=== PATIENT | male | born 1940 | race Caucasian/White ===

== ENCOUNTER 2023-06-29 13:27 | Emergency (ER) | payer MEDICARE, SELFPAY ==
[2023-06-29 13:28] VITALS: BP 121/54; PULSE 69; RESP 19; TEMP 36.2; O2SAT 98; BMI 23.5
--- NOTE | 2023-06-29 14:10 | EDS_ITS ---
HPI History of Present Illness Chief Complaint: Hypotension [facility] Medical History (Updated 06/29/23 @ 15:[address] Porfirio Chen, DO) Anemia DM II (diabetes mellitus, type II), controlled HTN (hypertension) Hyperlipidemia Hypokalemia Hypomagnesemia Hypothyroidism Pancreatic adenoma Paroxysmal atrial fibrillation SVT (supraventricular tachycardia) Tachycardia-bradycardia syndrome Home Medications allopurinol 300 mg tablet 300 mg PO DAILY 06/29/23 [History Last Taken Unknown] amlodipine 5 mg tablet 5 mg PO DAILY 06/29/23 [History Last Taken Unknown] apixaban 5 mg tablet (Eliquis) 5 mg PO Q12H 06/29/23 [History Last Taken Unknown] ferrous sulfate 325 mg (65 mg iron) tablet (Feosol) 325 mg PO DAILY 06/29/23 [History Last Taken Unknown] levothyroxine 88 mcg tablet 88 mcg PO DAILY 06/29/23 [History Last Taken Unknown] lidocaine-prilocaine 2.5 %-2.5 % topical cream 1 applic topical PRN PRN before accessing port 06/29/23 [History Last Taken Unknown] metformin 1,000 mg tablet 1,000 mg PO BID 06/29/23 [History Last Taken Unknown] metoprolol tartrate 25 mg tablet 25 mg PO DAILY 06/29/23 [History Last Taken Unknown] potassium chloride 20 mEq tablet,extended release(part/cryst) 20 meq PO BID 06/29/23 [History Last Taken Unknown] valsartan 320 mg-hydrochlorothiazide 25 mg tablet 1 tab PO DAILY 06/29/23 [History Last Taken Unknown] Allergy/AdvReac Type Severity Reaction Status Date / Time No Known Allergies Allergy Verified 06/29/23 13:38 Surgical History (Updated 06/29/23 @ 13:37 by Wendy Daugherty) H/O partial thyroidectomy Social History Smoking Status: Never smoker EXAM Physical Exam Const Vital Signs: 06/29/23 13:28 06/29/23 13:34 06/29/23 14:46 Temperature 97.2 F L Temperature Source Temporal Pulse Rate 69 Respiratory Rate 19 H Respiratory Effort Normal Non-Labored Respiratory Pattern Normal Blood Pressure 121/54 H Blood Pressure Mean 76 Pulse Ox 98 Oxygen Delivery Method Room Air Room Air 06/29/23 15:15 Temperature Temperature Source Pulse Rate 65 Respiratory Rate 20 H Respiratory Effort Respiratory Pattern Blood Pressure 120/53 L Blood Pressure Mean 75 Pulse Ox 100 Oxygen Delivery Method Room Air [facility] Narrative Medical decision making narrative: HISTORY OF PRESENT ILLNESS: 82-year-old male presents with concern for hypotension. States that his primary care doctor's office today noted hypotension with a systolic blood pressure of 63/45. Patient states he has no other symptoms including chest pain, palpitations, leg pain, back pain, focal weakness. States he did fall several days ago. His mechanical fall and he did not hit his head. Denies any other injury. REVIEW OF SYSTEMS: Pertinent positives: Hypotension, fall Pertinent negatives: Chest pain, shortness of breath PHYSICAL EXAM: Nursing triage notes reviewed, Vital signs reviewed Primary Survey Airway: Intact Breathing: Bilateral breath sounds Circulation: Palpable bilateral femorals, Palpable bilateral radial, Palpable bilateral DP and Palpable bilateral PT Disability / Spine precautions GCS Score: Eye Openin Verbal Response: 5 Motor Response: 6 Secondary Survey Constitutional: Please see MDM Head: Bruising and ecchymosis noted to the nasal bridge, NO jaw malocclusion, No Cephalohematoma, and No Lacerations noted Eye: Pupils equal round and reactive to light, Extraocular muscles intact and No periorbital ecchymosis or stepoff, no evidence of entrapment ENT: Oropharynx clear, no lacerations, no hemotympanum, no raccoon eyes or wallace sign Cervical spine / Neck: No cervical spine bony tenderness, crepitance, or stepoff deformity Trachea midline Lungs: Clear to auscultation, No asymmetric rise and No crepitus, no flail chest Cardiac: Regular rate and rhythm and No murmurs Abdomen: Soft, Nontender and No rebound Pelvis: Pelvis stable to compression : No evidence of genital injury Back: No midline bony tenderness to thoracic/lumbar/sacral spines Neuro: Alert and oriented x3, neuro exam at baseline, cranial nerves II through XII are intact. No pain with extraocular muscle movement. There is negative test of skew. 5 of 5 strength in upper and lower extremities in flexion extension. Intact sensation to light touch in upper and lower extremity dermatomes. No truncal or extremity ataxia. No dysdiadochokinesia. Normal gait. 2+ reflexes in upper and lower extremities. No meningeal signs. Negative Babinski. NIH of 0. Extremities: NO gross Deformities Psych: Normal affect Nursing triage notes reviewed, Vital signs reviewed MEDICAL DECISION MAKING: Chief Complaint: Hypotension External records reviewed: No records in [employer] Factors affecting care: Type 2 diabetes, hyperlipidemia, pancreatic cancer, atrial fibrillation Social determinants of health: Elderly History obtained from others: The patient's daughter Consults: none MDM Narrative: Patient was initially hemodynamically stable, afebrile and nontoxic-appearing. I considered the following differential diagnosis: Arrhythmia, anemia, distributive shock, hemorrhagic shock, obstructive shock, neurogenic shock ALL IMAGES (IF OBTAINED) HAVE BEEN PERSONALLY REVIEWED AND INTERPRETED BY MYSELF. EKG with normal sinus rhythm, normal axis, normal intervals, no STEMI BNP elevated consistent with volume overload, increased ventricular stretch High-sensitivity troponin is negative, no evidence of myocardial ischemia CT scan of the head face and cervical spine showed no evidence of traumatic injury I have personally reviewed the patient's chest x-ray. Chest x-ray is unremarkable for pulmonary edema, pneumothorax, pneumonia or focal cardiopulmonary abnormality. CBC with no leukocytosis, mild anemia, no thrombocytopenia, no prior for comparison BMP with mild hyponatremia, no other significant Patience abnormalities, no anion gap or signs of metabolic acidosis, noted renal insufficiency, no prior for comparison I have personally reviewed the patient's chest x-ray. Chest x-ray is unremarkable for pulmonary edema, pneumothorax, pneumonia or focal cardiopulmonary abnormality. The synthesis of the patient's history, physical exam, labs images suggest no acute life-limiting etiology. The patient reported blood pressure that was low at an outpatient visit here his blood pressure remained stable. There is no signs of metabolic acidosis or anion gap to suggest endorgan hypoperfusion. There is no physical exam or imaging findings to suggest neurogenic shock. There is no fever, elevated white blood cell count or signs of infection to suggest distributive shock. Patient denied any bleeding suggesting neurologic shock. No chest pain no shortness of breath to suggest obstructive shock from pericardial effusion or PE. Given patient stable vital signs, reassuring exam and labs he is appropriate for discharge home. Incidental finding of enlarged thyroid/mediastinal extension was discussed the patient. This is a known issue and has outpatient follow-up. The patient and/or family, caregivers express understanding. The patient and/or family, caregivers agrees with the plan. Shared decision making: I will have a discussion with the patient and or visitors regarding risk/benefit s of further testing or admission. They will be made aware of of the risk/benefits inherent in this decision they will be given the opportunity to voice understanding. Total critical care time today provided was at least 0 minutes. This excludes separately billable procedures. Critical care time (if documented) is secondary to the patient having high probability of clinically significant/life threatening deterioration in the patient's condition which required my urgent intervention. Impression: 1. Hypotension (resolved) 2. Fall 3. Anemia 4. Hyponatremia Dispo: Discharge This note was generated with [employer] dictation software. It may contain incorrect words, spelling, and punctuation that were not noted in review of the chart prior to signing. Lab Data Labs: Laboratory Results - last 24 hr 06/29/23 13:14 WBC 9.3 RBC 3.15 L Hgb 9.2 L Hct 29.9 L MCV 94.9 H MCH 29.2 MCHC 30.8 L RDW Std Deviation 70.2 H RDW Coeff of [place] 20.4 H Plt Count 175 MPV 11.3 Immature Gran % (Auto) 1.300 H Neut % (Auto) 78.2 H Lymph % (Auto) 9.8 L [place] % (Auto) 9.0 Eos % (Auto) 0.3 Baso % (Auto) 1.4 H Absolute Neuts (auto) 7.3 Absolute Lymphs (auto) 0.91 Nucleated RBC % 0 Poikilocytosis 1+ Anisocytosis 1+ Sodium 133 L Potassium 4.6 Chloride 105 Carbon Dioxide 22.0 Anion Gap 6 BUN 23 H Creatinine 1.36 H Estim Creat Clear Calc 40.43 Est GFR (MDRD) Af Amer 64 Est GFR (MDRD) Non-Af 53 L BUN/Creatinine Ratio 16.9 Glucose 186 H Calcium 9.6 Troponin I High Sens 26 B-Natriuretic Peptide 598.3 H Radiography Diagnostic Testing: Clinical Impression(s) from Imaging Studies Brain CT 06/29/23 14:35 IMPRESSION: Chronic involutional changes of the brain. Electronically Signed: Hieu Corbett MD at 15:08 EST , Cervical Spine CT 06/29/23 14:35 IMPRESSION: Multilevel degenerative changes, as described above. Bilateral neural foraminal stenosis as described. 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 Electronically Signed: Hieu Corbett MD at 15:13 EST , Facial/Sinus 06/29/23 14:35 IMPRESSION: Nasal septal deviation to the left side of the midline. Mucosal thickening at the base of the left maxillary sinus. No fracture is seen. Electronically Signed: Hieu Corbett MD at 15:09 EST , Chest X-Ray 06/29/23 15:00 IMPRESSION: The lungs are clear. Findings suggestive of a superior mediastinal mass most likely represents enlargement of the thyroid. Electronically Signed: Hieu Corbett MD at 15:14 EST , Discharge Plan Triage Chief Complaint: Hypotension ED Provider: Porfirio Chen Dx/Rx/DC Orders Clinical Impression: Acute hypotension, Mass of mediastinum Instructions: ED Low Blood Pressure, All Causes Prescriptions: No Action potassium chloride 20 mEq tablet,ER particles/crystals 20 meq PO BID valsartan-hydrochlorothiazide 320-25 mg tablet 1 tab PO DAILY lidocaine-prilocaine 2.5-2.5 % cream 1 applic topical PRN PRN (Reason: before accessing port) ferrous sulfate [Feosol] 325 mg (65 mg iron) tablet 325 mg PO DAILY allopurinol 300 mg tablet 300 mg PO DAILY amlodipine 5 mg tablet 5 mg PO DAILY Eliquis 5 mg tablet 5 mg PO Q12H levothyroxine 88 mcg tablet 88 mcg PO DAILY metformin 1,000 mg tablet 1,000 mg PO BID metoprolol tartrate 25 mg tablet 25 mg PO DAILY Primary Care Provider: Minnie Fry NP Referrals: Ang,Minnie ONLINE AFFILIATE MARKETING MANAGER, ONLINE AFFILIATE MARKETING MANAGER-C [Primary Care Provider] - Activity Restrictions/Additional Instructions: Thank you for trusting us with your care today! Please take Tylenol (2 pills, 650 mg) every 6 hours as needed for pain and fever control. Please return to the emergency department if your symptoms change or worsen. Please follow with your primary care physician for further outpatient evaluation and management. Disposition Disposition: Home, Self Care Discharge Date/Time: 06/29/23 15:51
--- NOTE | 2023-06-29 14:35 | CT_ITS ---
STUDY: CT BRAIN WITHOUT CONTRAST REASON FOR EXAM: Male, 82 years old. Fall, head trauma RADIATION DOSAGE (If Supplied By Facility): CTDIvol = ( 44.99 ) mGy, DLP = ( 1803.70 ) mGycm TECHNIQUE: Transaxial CT imaging of the brain was performed without administration of intravenous contrast material. Individualized dose optimization techniques were used for this CT. COMPARISON: No relevant priors. FINDINGS: Normal soft tissue structures. Normal calvarium. There is mild cerebral atrophy with widening of the extra-axial spaces and ventricular dilatation. There are areas of decreased attenuation within the white matter tracts of the supratentorial brain, consistent with microvascular disease changes. Normal basal ganglia and thalami. Normal brainstem. There is mild cerebellar atrophy. There is no intracranial hemorrhage. There are no findings of an acute ischemic infarction. Atherosclerotic plaque formation of the vertebral arteries as well as the cavernous portions of the internal carotid arteries bilaterally. Small polyp or mucosal retention cyst at the base of the left maxillary sinus. CT/Brain/Head without Contrast IMPRESSION: Chronic involutional changes of the brain. Electronically Signed: Hieu Corbett MD at 15:08 EST ,
--- NOTE | 2023-06-29 14:35 | CT_ITS ---
STUDY: CT FACIAL BONES WITHOUT CONTRAST REASON FOR EXAM: Male, 82 years old. Facial trauma RADIATION DOSAGE (If Supplied By Facility): CTDIvol = ( 29.38 ) mGy, DLP = ( 1803.70 ) mGycm TECHNIQUE: The patient was scanned in a multi detector CT scanner. Sagittal and coronal images were reconstructed. Individualized dose optimization techniques were used for this CT. COMPARISON: None. FINDINGS: Normal soft tissue structures. Normal orbital martinez and orbital contents. Normal nasal bones and anterior nasal spine. Normal facial bones. There is no demonstrated fracture. Mucosal thickening at the base of the left maxillary sinus. Nasal septal deviation towards the left side of the midline. CT/Sinus/Facial Bone IMPRESSION: Nasal septal deviation to the left side of the midline. Mucosal thickening at the base of the left maxillary sinus. No fracture is seen. Electronically Signed: Hieu Corbett MD at 15:09 EST ,
--- NOTE | 2023-06-29 14:35 | CT_ITS ---
STUDY: CT CERVICAL SPINE WITHOUT CONTRAST REASON FOR EXAM: Male, 82 years old. Fall, neck pain RADIATION DOSAGE (If Supplied By Facility): CTDIvol = ( 20.26 ) mGy, DLP = ( 1803.70 ) mGycm TECHNIQUE: High resolution transaxial imaging was performed without contrast material. Sagittal and coronal images were reconstructed. Individualized dose optimization techniques were used for this CT. COMPARISON: None FINDINGS: Normal craniovertebral junction. There are degenerative changes of the anterior atlantoaxial articulation. Normal odontoid process. Normal cervical lordosis. Normal vertebral bodies and posterior osseous elements. C2-3: Facet joint osteoarthritis and hypertrophy worse on the right side. No significant stenosis is seen. C3-4: Facet joint osteoarthritis and hypertrophy worse on the right side. No significant neural foraminal stenosis is seen. C4-5: Facet joint osteoarthritis and hypertrophy. Uncovertebral arthrosis. Mild bilateral neural foraminal stenosis. C5-6: Moderate degree of disc space narrowing. Spondylosis. Uncovertebral arthrosis. Bilateral neural foraminal stenosis worse on the left side. Posterior spondylosis. C6-7: Marked degree of disc space narrowing. Uncovertebral arthrosis. A marked degree of bilateral neural foraminal stenosis worse on the right side. C7-T1: Normal endplates. Normal disc height and morphology. Normal central canal and intervertebral neuroforamina. Calcification of the carotid bifurcations bilaterally. Right-sided portacatheter is seen. 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 CT/Spine Cervical without Contras IMPRESSION: Multilevel degenerative changes, as described above. Bilateral neural foraminal stenosis as described. 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 Electronically Signed: Hieu Corbett MD at 15:13 EST ,
--- NOTE | 2023-06-29 14:44 | ED.RN ---
NO OLD EKG
[2023-06-29 14:52] LABS: Absolute Lymphocyte Count 0.91 X10^3/uL (0.83-4.51); Absolute Neutrophil Count 7.3 X10^3/uL (2.0-7.7); Basophil# 0.13 X10^3/uL; Basophil% 1.4 % (0-1); Eosinophil# 0.03 X10^3/uL; Eosinophils% 0.3 % (0-5); Hematocrit 29.9 % (40-54); Hemoglobin 9.2 g/dL (13.0-16.5); Lymphocyte # 0.91 X10^3/ul (0.83-4.51); Lymphocyte % 9.8 % (19-41); Mean Corp Hgb Conc 30.8 g/dL (32-36); Mean Corpuscular Hgb 29.2 pg (27.0-32.0); Mean Corpuscular Volume 94.9 fL (80-94); Mean Platelet Vol. 11.3 fl (6.2-12.0); Monocyte# 0.84 X10^3/uL; NRBC Flagged by Analyzer 0 % (0-5); Neutrophil % 78.2 % (47-70); POSITIVE MORPHOLOGY YES; Platelet Count 175 K/mm3 (150-450); RBC Distribution Width CV 20.4 % (11.6-14.6); RBC Distribution Width SD 70.2 fl (35.1-43.9); Red Blood Count 3.15 M/mm3 (4.6-6.2); White Blood Count 9.3 K/mm3 (4.4-11.0)
[2023-06-29 14:57] LABS: Differential Indicated SCAN CRITERIA MET
--- NOTE | 2023-06-29 15:00 | RAD_ITS ---
STUDY: X-RAY CHEST REASON FOR EXAM: Male, 82 years old. Weakness, hypotension TECHNIQUE: Single AP portable view of the chest. COMPARISON: None. FINDINGS: The right-sided bozena catheter is seen with the tip in the superior vena cava. EKG electrodes are seen. Soft tissue density seen in the upper mediastinum causing the compression of the trachea worse on the right side. Lungs are clear. There is no demonstrated pleural abnormality. Normal size heart. Normal mediastinum and manjeet. Normal visualized pulmonary arteries. Normal visualized aortic arch and descending thoracic aorta. Normal visualized thoracic spine. Prior rotator cuff surgery. There is no demonstrated abnormality of the visualized soft tissue structures of the upper abdomen. RAD/Chest 1 View (Portable) IMPRESSION: The lungs are clear. Findings suggestive of a superior mediastinal mass most likely represents enlargement of the thyroid. Electronically Signed: Hieu Corbett MD at 15:14 EST ,
[2023-06-29 15:12] LABS: Anion Gap 6 (5-15); BUN 23 mg/dL (7-18); BUN/Creat Ratio 16.9 RATIO (10-20); Calcium,Total 9.6 mg/dL (8.5-10.1); Chloride 105 mmol/L (98-107); Creatinine, Serum 1.36 mg/dL (0.70-1.30); EST Glomerular Filtration Rate 53 mL/min (>60); Est Glom Filt Rate - Afr Amer 64 mL/min (>60); Estimated Creatinine Clearance 40.43 ml/min; Glucose 186 mg/dL (74-106); Potassium 4.6 mmol/L (3.5-5.1); Sodium Level 133 mmol/L (136-145); Troponin-I HS 26 pg/mL (3.0-78.0)
[2023-06-29] MEDS: 0.9% Normal Saline (500mL Bag) 500 ML 999 ML IV (15:14)
[2023-06-29 15:15] VITALS: BP 120/53; PULSE 65; RESP 20; O2SAT 100
[2023-06-29 15:15] LABS: BNP,B-Type NATRIURETIC PEPTIDE 598.3 pg/mL (0-100)
[2023-06-29 15:24] LABS: Anisocytosis 1+; Poikilocytosis 1+
== END 2023-06-29 15:51 | disposition home or self-care (01) ==
PROVIDERS: Emergency Provider Emergency Medicine; PCP Nurse Practitioner Adult Health; Visit Provider Emergency Medicine
DX: I95.9 Hypotension, unspecified (principal); I48.0 Paroxysmal atrial fibrillation; E11.9 Type 2 diabetes mellitus without complications; D64.9 Anemia, unspecified; E87.1 Hypo-osmolality and hyponatremia
CPT/HCPCS: 70450; 70486; 71045; 72125; 80048; 83880; 84484; 85025; 93005; 99284; J7030

== ENCOUNTER 2023-07-17 12:31 | Emergency (ER) | payer MEDICARE, SELFPAY ==
[2023-07-17 12:31] VITALS: BP 89/71; PULSE 147; RESP 16; TEMP 36.4; O2SAT 100; BMI 23.3
--- NOTE | 2023-07-17 13:01 | EKG12_ITS ---
Test Reason : LOW BP Blood Pressure : / mmHG Vent. Rate : 141 BPM Atrial Rate : 000 BPM P-R Int : 000 ms QRS Dur : 112 ms QT Int : 318 ms P-R-T Axes : 000 077 -39 degrees QTc Int : 487 ms Critical Test Result: High HR Supraventricular tachycardia Low voltage QRS Incomplete right bundle branch block ST & T wave abnormality, consider anterior ischemia Abnormal ECG Confirmed by Andre Ochoa ([id number]), film editor VICTOR HUGO OLIVEIRA ([id number]) on 07/18/2023 10:55:19 AM Referred By: Confirmed By:Andre Ochoa
--- NOTE | 2023-07-17 13:04 | EX.ED.DYSGE1 ---
HPI History of Present Illness Chief Complaint: Hypotension Narrative Narrative: 83-year-old male past medical history of pancreatic cancer with supposed to get chemotherapy today. According to his daughter it would be his 21st round. Patient is asymptomatic but it was noted that his blood pressure was low, and he had a rapid heart rate. He denies any chest pain or shortness of breath. He was given a 500 Milliliter bolus of normal saline and they did not perform the chemotherapy. He was sent to the emergency department for further evaluation. Patient states that he may have mild shortness of breath/heavy breathing, but it usually resolves after he stands up. [facility] Medical History Anemia DM II (diabetes mellitus, type II), controlled HTN (hypertension) Hyperlipidemia Hypokalemia Hypomagnesemia Hypothyroidism Pancreatic adenoma Paroxysmal atrial fibrillation SVT (supraventricular tachycardia) Tachycardia-bradycardia syndrome Home Medications allopurinol 300 mg tablet 300 mg PO DAILY 06/29/23 [History Last Taken 07/17/23] amlodipine 5 mg tablet 5 mg PO DAILY 06/29/23 [History Last Taken 07/17/23] apixaban 5 mg tablet (Eliquis) 5 mg PO Q12H 06/29/23 [History Last Taken 07/17/23] ferrous sulfate 325 mg (65 mg iron) tablet (Feosol) 325 mg PO DAILY 06/29/23 [History Last Taken 07/17/23] levothyroxine 88 mcg tablet 88 mcg PO DAILY 06/29/23 [History Last Taken 07/17/23] lidocaine-prilocaine 2.5 %-2.5 % topical cream 1 applic topical DAILY PRN before accessing port 06/29/23 [History Last Taken 07/17/23] metformin 1,000 mg tablet 1,000 mg PO BID 06/29/23 [History Last Taken 07/17/23] metoprolol tartrate 25 mg tablet 12.5 mg PO BID 06/29/23 [History Last Taken 07/17/23] potassium chloride 20 mEq tablet,extended release(part/cryst) 20 meq PO BID 06/29/23 [History Last Taken 07/17/23] valsartan 320 mg-hydrochlorothiazide 25 mg tablet 1 tab PO DAILY 06/29/23 [History Last Taken 07/17/23] cholecalciferol (vitamin D3) 1 tab PO DAILY supplement 07/17/23 [History Last Taken 07/17/23] magnesium chloride 71.5 mg (magnesium chloride) tablet,delayed release (Slow-Mag) 71.5 mg PO TID 07/17/23 [History Last Taken 07/17/23] omega-3 fatty acids-fish oil 360 mg-1,200 mg capsule (Fish Oil) 3 cap PO BID 07/17/23 [History Last Taken 07/17/23] Allergy/AdvReac Type Severity Reaction Status Date / Time No Known Allergies Allergy Verified 07/17/23 12:31 Surgical History H/O partial thyroidectomy Social History Smoking Status: Never smoker ROS ROS ED ROS Narrative Constitutional: No fever, no chills. HEENT: No sore throat. No neck pain. No loss of vision. No rhinorrhea. Cardiovascular: No chest pain. No palpitations. No pedal edema. Respiratory: No cough, occasional heavy breathing/shortness of breath. Abdominal: No abdominal pain. No nausea. No vomiting. Genitourinary: No dysuria. No hematuria. Musculoskeletal: No myalgias. No arthralgias. Neurologic: No headaches. No dizziness. No lightheadedness. Skin: No rash. No change in color. Psychiatric: No depression. No anxiety. EXAM Physical Exam Narrative Exam Narrative: Afebrile. Vital signs noted. HEENT: Normocephalic. Atraumatic. PERRL, EOMI. Neck soft and supple. No point tenderness or step off. Cardiovascular: Irregularly irregular tachycardia, no murmurs, rubs, or gallops appreciated. Respiratory: No tachypnea. Lungs clear to auscultation bilaterally. Gastrointestinal: Abdomen soft, nontender, with normoactive bowel sounds. No rebound or guarding. Neurological: Awake. Alert. Nonfocal, nonlateralizing. Skin: No rash. Normal color. No pallor. Musculoskeletal: No pedal edema. Full range of motion extremities. Const Vital Signs: 07/17/23 12:31 07/17/23 13:34 07/17/23 13:30 Temperature 97.6 F L Temperature Source Temporal Pulse Rate 147 H 139 H Respiratory Rate 16 18 Respiratory Effort Normal Non-Labored Respiratory Pattern Normal Blood Pressure 89/71 L 105/75 Blood Pressure Mean 77 86 Pulse Ox 100 Oxygen Delivery Method Room Air MDM MDM MDM Narrative Medical decision making narrative: In discussion with the patient, he does have history of atrial fibrillation that is longstanding. The top of my differential for his hypotension is irregularly irregular tachycardia/A-fib with RVR. In the differential diagnosis as well is intravascular volume depletion versus dehydration, but he has not had any nausea or vomiting or diarrhea recently. Initial EKG was obtained and interpreted by myself independently as supraventricular tachycardia at [address] changes. No STEMI. With his history of atrial fibrillation, I do feel that this is most likely A-fib with RVR. I reviewed his laboratory work, he has a normal white count of 6.2, hemoglobin stable at 9.3 with platelet count 206. His electrolyte panel is grossly unremarkable except for CO2 low at 20 which may be from hyperventilation, BUN elevated at 21 with creatinine 1.07 consistent with mild dehydration, but no evidence of hypokalemia or hyponatremia. His lactic acid is elevated at 3.8, high-sensitivity troponin is 23. I am unsure as to how long he may have been in atrial fibrillation which may have caused his lactic acidosis and hypotension. Patient does take apixaban, and has not missed a dose within the last 3 weeks. Additionally, he is on metoprolol and amlodipine. Do feel that his metoprolol is a low-dose is most likely for rate control. I did order metoprolol 10 mg intravenously. I have discussed patient with Dr. Andre Ochoa, and his blood pressure has come up to 105/75 so I do not feel that emergent cardioversion is indicated. Additionally, he suggested rate control and follow-up with cardiology at [facility]. Chest x-ray in 1 view interpreted by myself independently shows no pneumonia or pneumothorax. I do not feel antibiotics are indicated. Patient was bolused normal saline IV fluids. Prior to administration of metoprolol, patient became bradycardic in the 20s as he was drifting off to sleep. His heart rate returned to the 60s. Repeat EKG was obtained and interpreted by myself as normal sinus rhythm at 63 bpm without ectopy or acute ST changes. No STEMI. Patient had spontaneously cardioverted. He is unable to produce a urine sample. His current systolic blood pressure is 122 on the monitor. I do not feel his lactic acidosis is secondary to sepsis. I discussed the patient with Dr. Linn, his oncologist. He will attempt to reschedule his chemotherapy. Through shared decision making with the patient and his daughter, it was not felt that observation or even admission would be beneficial to him. He understands the risks and benefits. I feel that he is probably having intermittent episodes of atrial fibrillation with rapid ventricular response, but that is why he is on Eliquis. He has spontaneously cardioverted in the emergency department. He will follow-up with his oncologist and cardiology as scheduled. Disposition is discharged home in stable condition. History & Record Review Discussion w/independent historian: Patient and Family (Daughter, Radha) Additional record(s) reviewed:: No prior records Lab Data Attestation: I reviewed the patient's lab results. Labs: Laboratory Results - last 24 hr 07/17/23 13:20 WBC 6.2 RBC 3.17 L Hgb 9.3 L Hct 29.4 L MCV 92.7 MCH 29.3 MCHC 31.6 L RDW Std Deviation 65.1 H RDW Coeff of [place] 19.0 H Plt Count 206 MPV 9.8 Immature Gran % (Auto) 0.300 Neut % (Auto) 61.4 Lymph % (Auto) 22.6 [place] % (Auto) 13.4 H Eos % (Auto) 1.3 Baso % (Auto) 1.0 Absolute Neuts (auto) 3.8 Absolute Lymphs (auto) 1.40 Nucleated RBC % 0 Anisocytosis 2+ Sodium 139 Potassium 4.7 Chloride 107 Carbon Dioxide 20.0 L Anion Gap 12 BUN 21 H Creatinine 1.07 Estim Creat Clear Calc 50.47 Est GFR (MDRD) Af Amer 85 Est GFR (MDRD) Non-Af 70 BUN/Creatinine Ratio 19.6 Glucose 174 H Lactic Acid 3.8 H* Calcium 8.9 Total Bilirubin 0.40 AST 45 H ALT 48 Alkaline Phosphatase 151 H Troponin I High Sens 23 Total Protein 6.1 L Albumin 2.3 L Globulin 3.8 Albumin/Globulin Ratio 0.6 L Radiography Diagnostic Testing: Clinical Impression(s) from Imaging Studies Chest X-Ray 07/17/23 13:25 IMPRESSION: Chronic interstitial changes, no superimposed acute pulmonary process Stable soft tissue mass in the upper left mediastinum deviating the trachea to the right, likely thyroid. Electronically Signed: George Khoury MD at 13:46 EST , Discharge Plan Triage Chief Complaint: Hypotension ED Provider: Kennedy Buck Dx/Rx/DC Orders Clinical Impression: History of pancreatic cancer, Hypotension, Atrial fibrillation with RVR, Lactic acidosis Prescriptions: No Action potassium chloride 20 mEq tablet,ER particles/crystals 20 meq PO BID valsartan-hydrochlorothiazide 320-25 mg tablet 1 tab PO DAILY lidocaine-prilocaine 2.5-2.5 % cream 1 applic topical DAILY PRN (Reason: before accessing port) ferrous sulfate [Feosol] 325 mg (65 mg iron) tablet 325 mg PO DAILY allopurinol 300 mg tablet 300 mg PO DAILY amlodipine 5 mg tablet 5 mg PO DAILY Eliquis 5 mg tablet 5 mg PO Q12H levothyroxine 88 mcg tablet 88 mcg PO DAILY metformin 1,000 mg tablet 1,000 mg PO BID metoprolol tartrate 25 mg tablet 12.5 mg PO BID omega-3 fatty acids-fish oil [Fish Oil] 360-1,200 mg capsule 3 cap PO BID Slow-Mag 71.5 mg tablet,delayed release (DR/EC) 71.5 mg PO TID cholecalciferol (vitamin D3) 1 tab PO DAILY Primary Care Provider: Minnie Fry NP Referrals: Rashi Linn MD [Med Staff - Active Staff] - As soon as possible Minnie Fry NP, SIGNAL OPERATOR LINGUIST-C [Primary Care Provider] - Disposition Disposition: Home, Self Care
[2023-07-17] MEDS: 0.9% Normal Saline (1000mL) 1,000 ML 1000 ML IV (13:19)
--- NOTE | 2023-07-17 13:25 | RAD_ITS ---
STUDY: X-RAY CHEST REASON FOR EXAM: Male, 83 years old. Chest pain/pressure TECHNIQUE: Single AP portable view of the chest. COMPARISON: 06/29/2023 FINDINGS: EKG leads overlie the chest. Stable appearance of a right subclavian port Chronic interstitial changes in both lung woods without a superimposed acute pulmonary process, or significant interval change. Normal size heart. Persistent upper mediastinal soft tissue mass, may be related to thyroid deviating the trachea again to the right. Normal visualized pulmonary arteries. Normal visualized aortic arch and descending thoracic aorta. Normal visualized thoracic spine. Normal visualized ribs, clavicles, and shoulders. There is no demonstrated abnormality of the visualized soft tissue structures of the upper abdomen. RAD/Chest 1 View (Portable) IMPRESSION: Chronic interstitial changes, no superimposed acute pulmonary process Stable soft tissue mass in the upper left mediastinum deviating the trachea to the right, likely thyroid. Electronically Signed: George Khoury MD at 13:46 EST ,
[2023-07-17 13:30] VITALS: BP 105/75; PULSE 139; RESP 18
[2023-07-17 13:34] LABS: Absolute Neutrophil Count 3.8 X10^3/uL (2.0-7.7); Basophil# 0.06 X10^3/uL; Eosinophil# 0.08 X10^3/uL; Eosinophils% 1.3 % (0-5); Hematocrit 29.4 % (40-54); Hemoglobin 9.3 g/dL (13.0-16.5); Lymphocyte % 22.6 % (19-41); Mean Corp Hgb Conc 31.6 g/dL (32-36); Mean Corpuscular Hgb 29.3 pg (27.0-32.0); Mean Corpuscular Volume 92.7 fL (80-94); Mean Platelet Vol. 9.8 fl (6.2-12.0); Monocyte# 0.83 X10^3/uL; Monocyte% 13.4 % (0-10); NRBC Flagged by Analyzer 0 % (0-5); Neutrophil % 61.4 % (47-70); POSITIVE MORPHOLOGY YES; Platelet Count 206 K/mm3 (150-450); RBC Distribution Width SD 65.1 fl (35.1-43.9); Red Blood Count 3.17 M/mm3 (4.6-6.2); White Blood Count 6.2 K/mm3 (4.4-11.0)
[2023-07-17 13:39] LABS: Differential Indicated SCAN CRITERIA MET
[2023-07-17 13:47] LABS: ALB/GLOB Ratio 0.6 RATIO (0.9-2.4); AST(SGOT) 45 U/L (15-37); Alanine Aminotransfer ALT/SGPT 48 U/L (16-61); Albumin, Serum 2.3 g/dL (3.2-5.0); Alkaline Phosphatase 151 U/L (45-117); Anion Gap 12 (5-15); BUN 21 mg/dL (7-18); BUN/Creat Ratio 19.6 RATIO (10-20); Calcium,Total 8.9 mg/dL (8.5-10.1); Chloride 107 mmol/L (98-107); Creatinine, Serum 1.07 mg/dL (0.70-1.30); EST Glomerular Filtration Rate 70 mL/min (>60); Est Glom Filt Rate - Afr Amer 85 mL/min (>60); Estimated Creatinine Clearance 50.47 ml/min; Globulin 3.8 g/dL (2.2-4.2); Glucose 174 mg/dL (74-106); Potassium 4.7 mmol/L (3.5-5.1); Protein, Total 6.1 g/dL (6.4-8.2); Sodium Level 139 mmol/L (136-145); Troponin-I HS 23 pg/mL (3.0-78.0)
[2023-07-17 13:58] LABS: Lactic Acid 3.8 mmol/L (0.4-1.9)
[2023-07-17 14:00] VITALS: BP 106/79; PULSE 135; RESP 17
[2023-07-17 14:00] LABS: Anisocytosis 2+
--- NOTE | 2023-07-17 14:19 | EKG12_ITS ---
Test Reason : REPEAT Blood Pressure : / mmHG Vent. Rate : 063 BPM Atrial Rate : 063 BPM P-R Int : 194 ms QRS Dur : 118 ms QT Int : 428 ms P-R-T Axes : 033 056 029 degrees QTc Int : 437 ms Normal sinus rhythm Low voltage QRS Incomplete right bundle branch block Borderline ECG Confirmed by Andre Ochoa ([id number]), industrial editor VICTOR HUGO OLIVEIRA ([id number]) on 07/18/2023 10:55:41 AM Referred By: Confirmed By:Andre Ochoa
[2023-07-17 15:00] VITALS: BP 127/65; PULSE 66; RESP 19
[2023-07-17 15:16] VITALS: BP 127/65; PULSE 66; RESP 19; TEMP 36.4; O2SAT 100
[2023-07-17 17:25] LABS: Reflex Lactate? Y
== END 2023-07-17 15:19 | disposition home or self-care (01) ==
PROVIDERS: Emergency Provider Emergency Medicine; PCP Nurse Practitioner Adult Health; Visit Provider Emergency Medicine
DX: I95.9 Hypotension, unspecified (principal); I48.0 Paroxysmal atrial fibrillation; E11.9 Type 2 diabetes mellitus without complications; E87.20 Acidosis, unspecified; E03.9 Hypothyroidism, unspecified; Z79.899 Other long term (current) drug therapy; Z79.01 Long term (current) use of anticoagulants; Z79.84 Long term (current) use of oral hypoglycemic drugs
CPT/HCPCS: 36591; 71045; 80053; 83605; 84484; 85025; 93005; 96360; 96361; 99283; J7030; A4216

== ENCOUNTER 2023-08-29 10:19 | Outpatient (CLI) | payer MEDICARE, SELFPAY ==
[2023-08-29 10:24] VITALS: BP 114/42; PULSE 60; RESP 16; TEMP 36.3; O2SAT 100; BMI 23.8
[2023-08-29] MEDS: 0.9% Normal Saline (500mL Bag) 500 ML 15 ML IV (10:44)
[2023-08-29] MEDS: Acetaminophen 325 MG Tablet 650 MG PO (10:46)
[2023-08-29 11:24] VITALS: BP 106/41; PULSE 57; RESP 16; TEMP 36.5; O2SAT 95
[2023-08-29 12:18] VITALS: BP 131/57; PULSE 60; RESP 14; TEMP 36.7; O2SAT 98
[2023-08-29] MEDS: 0.9% NaCl Peripheral Flush Adult/Peds IV (13:04)
[2023-08-29 13:05] VITALS: BP 119/49; PULSE 60; RESP 16; TEMP 36.6
== END 2023-08-29 10:20 | disposition home or self-care (01) ==
LOC: MEDOUTP 10:20
PROVIDERS: PCP Nurse Practitioner Adult Health; Referring Provider Specialist; Visit Provider Specialist
DX: D50.9 Iron deficiency anemia, unspecified (principal)
CPT/HCPCS: 36430; 86850; 86900; 86901; 86920; 86922; J7040; P9016; A4216

== ENCOUNTER 2023-09-05 08:27 | Outpatient (CLI) | payer MEDICARE, SELFPAY ==
[2023-09-05] MEDS: 0.9% Normal Saline (500mL Bag) 500 ML 15 ML IV (08:55)
[2023-09-05 08:57] VITALS: BP 101/31; PULSE 60; RESP 16; TEMP 35.5; O2SAT 97; BMI 24.2
[2023-09-05 09:37] VITALS: BP 107/46; PULSE 60; RESP 16; TEMP 36
[2023-09-05 10:43] VITALS: BP 126/46; PULSE 60; RESP 16; O2SAT 94
[2023-09-05] MEDS: 0.9% NaCl Peripheral Flush Adult/Peds IV (11:42)
[2023-09-05 11:45] VITALS: BP 109/44; PULSE 60; RESP 16; TEMP 35.8; O2SAT 97
== END 2023-09-05 08:28 | disposition home or self-care (01) ==
LOC: MEDOUTP 08:28
PROVIDERS: PCP Nurse Practitioner Adult Health; Referring Provider Specialist; Visit Provider Specialist
DX: D50.9 Iron deficiency anemia, unspecified (principal)
CPT/HCPCS: 36430; 86850; 86900; 86901; 86920; 86922; J7040; P9016; A4216